=== PATIENT | female | born 1960 | race Caucasian/White ===

== ENCOUNTER 2023-04-10 07:34 | Day surgery (SDC) | payer MEDICAID ==
[~2023-04-10] VITALS: Ht 157.5 cm; Wt 78.5 kg
[2023-04-10 08:25] VITALS: O2SAT 99
[2023-04-10] MEDS ORDERED: SIMETHICONE 40 MG/0.6 ML ML ONE (08:36)
[2023-04-10] MEDS ORDERED: MEPERIDINE 100 MG INJ. 100 MG/ML VIAL ONE (08:37)
[2023-04-10] MEDS ORDERED: MIDAZOLAM HCL 5 MG/5 ML VIAL ONE (08:37)
[2023-04-10 15:08] VITALS: BP_SYST 107; PULSE 70; RESP 20; TEMP 97.6
== END 2023-04-10 11:45 | disposition home or self-care (01) ==
LOC: SDS 07:34 → SMU 07:35 → SDS 11:45
PROVIDERS: ATTEND Internal Medicine Gastroenterology
DX: R14.0 Abdominal distension (gaseous) (principal); D12.2 Benign neoplasm of ascending colon; D12.4 Benign neoplasm of descending colon; D12.5 Benign neoplasm of sigmoid colon; K29.50 Unspecified chronic gastritis without bleeding; K29.80 Duodenitis without bleeding; B96.81 Helicobacter pylori [H. pylori] as the cause of diseases classified elsewhere; R19.8 Other specified symptoms and signs involving the digestive system and abdomen; K21.9 Gastro-esophageal reflux disease without esophagitis; K57.30 Diverticulosis of large intestine without perforation or abscess without bleeding; K64.9 Unspecified hemorrhoids; K25.9 Gastric ulcer, unspecified as acute or chronic, without hemorrhage or perforation; Z79.899 Other long term (current) drug therapy
CPT/HCPCS: 45385; 43239; 99152; 87081; 36415; 88305; 88312; 88313; 99153; G0378; J2250; J2175; 45380